=== PATIENT | female | born 2000 ===

== ENCOUNTER 2025-09-05 03:24 | Emergency (ER) | payer MEDICAID, OTHER, SELFPAY ==
[2025-09-05 03:31] VITALS: BP 107/58; PULSE 74; RESP 20; TEMP 36.9; O2SAT 99; BMI 21.4
[2025-09-05 04:24] LABS: Resp Syncy Virus RNA Qual PCR NEGATIVE (Negative); SARS COV2 PCR INHOUSE NEGATIVE (Negative)
--- NOTE | 2025-09-05 05:01 | ED_ITS ---
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 Shannon Alaniz HPI Narrative: Social Service Director services provided throughout visit (Finnish). The patient is a female presenting with 2 days of severe, persistent headache that ?hasn?t stopped.? She reports generalized body aches that began overnight (last night/early this morning) and diffuse back pain (?in my spine?). She feels feverish but has not taken her temperature; she notes a possible mild fever yesterday. Sick contact history: her daughter was feeling a little sick but is now okay. A rapid influenza test performed in the ED is positive for Influenza A. She denies nausea, vomiting, or diarrhea, though she notes the onset of mild stomachache about one hour prior to evaluation. She occasionally experiences e pisodes of shortness of breath suggestive of mild reactive airway symptoms but does not use any maintenance inhaler. No prior medical problems and no medication allergies are reported. She has not received this year?s influenza vaccine. Last menstrual period was on the 11 or 12th of this month. Related Data Previous Rx's ?Medication ?Instructions ?Recorded albuterol sulfate 90 mcg/actuation 2 inh inhalation Q4 H PRN shortness 09/05/25 breath activated powder inhaler of breath #1 ea ibuprofen 600 mg tablet 600 mg PO Q8H PRN fever or p ain 09/05/25 #30 tabs ondansetron 4 mg disintegrating 4 mg PO Q8H PRN nausea and 09/05/25 tablet vomiting #10 tabs Allergies Allergy/AdvReac Type Severity Reaction Status Date / Time No Known Allergies Allergy Verified 09/05/25 03:33 Review of Systems Review of Systems: as per HPI, full review of systems performed and negative but for the above mentioned pertinent positives and negatives. [facility] Social History Social History Advance Directives: No Advance Directives Information Provided: Yes Physical Exam Exam: Exam: GENERAL: Ill-Appearing, appears uncomfortable. SKIN: Normal skin color for ethnicity, warm, dry, no rashes noted. HEENT:? Normocephalic, atraumatic, no stridor, dry mucous membranes, dentition intact, EOMI. NECK: Soft, supple, full ROM, midline structures nontender, no step-offs, no deformities, no lymphadenopathy. CHEST: Heart regular rhythm, no murmurs, symmetric chest rise and fall. PULMONARY: Clear to auscultation bilaterally, diminished at the bases, no labored breathing, no wheezes/rhales/rhonchi. ABDOMINAL: Soft, nondistended, nontender, positive bowel sounds in all quadrants. : Deferred. MUSCULOSKELETAL: Normal tone, full range of motion, no deformities, no peripheral edema. NEURO: Alert and oriented x3, CN II through XII intact, equal strength and sensation bilateral upper and lower extremities, no focal neurologic deficits.? PSYCHIATRIC: Flat affect, fluid speech, good eye contact and appropriate demeanor. Vital Signs: Vital Signs: Last Vital Signs Temp 98.4 F 09/05/25 05:21 Pulse 87 09/05/25 05:21 Resp 20 09/05/25 05:21 BP 107/58 L 09/05/25 05:21 Pulse Ox 99 09/05/25 05:21 O2 Del Method Room Air 09/05/25 05:21 BMI result Body Mass Index 21.4 Medications Administered Discontinued Medications Generic Name Dose Route Start Last Admin Trade Name Freq PRN Reason Stop Dose Admin Albuterol Sulfate 2 puff 09/05/25 04:59 09/05/25 05:13 Albuterol Sulfate 90 Mcg 8 Gm Inhaler INHALE 09/05/25 05:00 2 puff ONCE ONE Administration Ibuprofen 600 mg 09/05/25 04:59 09/05/25 05:18 Ibuprofen 600 Mg Tablet PO 09/05/25 05:00 600 mg ONCE ONE Administration Medical Decision Making Medical Decision Making [facility] Narrative: Patient presents today with flu-like symptoms. Differential diagnosis includes influenza, coronavirus, pneumonia, upper respiratory infection, among others. Most importantly, this patient is not in any acute respiratory distress. They have normal oxygen levels at room air. Problem #1: Influenza A infection Assessment: Confirmed by rapid antigen test; symptom onset <48 h, patient within treatment window. Plan: * Initiate oseltamivir (Tamiflu) prescription; side-effects (nausea, vomiting, diarrhea) reviewed with patient. * Symptomatic treatment: antipyretics/analgesics (acetaminophen or ibuprofen) as needed for fever and pain. * Return precautions: return if symptoms not improving within 1 week, development of green/brown phlegm, or worsening shortness of breath. Problem #2: Headache / Myalgias associated with influenza Assessment: Severe, persistent; related to viral illness. Plan: * Administer analgesic/antipyretic medication in ED for headache, body aches, and fever. * Continue acetaminophen or ibuprofen at home as needed. * Educate that symptoms may persist for several days despite antiviral therapy. Problem #3: Episodic shortness of breath / possible bronchospasm Assessment: Patient experiences intermittent shortness of breath without established asthma diagnosis; likely viral-induced bronchospasm. Plan: * Inhaler provided for use if experiencing shortness of breath or coughing fits. * Return if shortness of breath worsens or inhaler no longer provides relief. Differential Diagnosis Differential Diagnoses: The differential diagnosis associated with the presentation includes (as above) Admission/Observation Consideration of admission/observation: Escalation of care including a dmission/observation considered Lab Data MDM Lab Attestation statement: I reviewed the patient's lab results. Labs: Lab Results 09/05/25 Range/Units 03:43 Influenza Type A (PCR) POSITIVE A (Negative) Influenza Type B (PCR) NEGATIVE (Negative) RSV RNA Qual (PCR) NEGATIVE (Negative) SARS-CoV-2 RNA (RT-PCR) NEGATIVE (Negative) External Record Review External record reviewed: Inpatient record Prescription Management I considered prescription management with: Antiviral Discharge Plan Discharge Clinical Impression: Influenza A Patient Disposition: Home, Self-Care Instructions: Influenza (ED) Additional Instructions: Keep your mask on if you have to go into public for any reason while you are ill. Use Tylenol and Motrin around the clock for fever and body aches. Use Zofran (ondansetron) as needed for nausea. Return to the emergency department with any new or worsening symptoms including: Worsening shortness of breath, continued fevers despite medications, inability to tolerate food or drink. Call 911 with any medical emergency. Mantenga puesta la mascarilla si necesita salir a la jimenes por cualquier motivo mientras est? enfermo. [place] Tylenol y Motrin cada pocas horas para la fiebre y los elle corporales. Use Zofran (ondansetr?n) seg?n sea necesario para las n?useas. Regrese a la von de emergencias si presenta s?ntomas nuevos o que empeoran, incluyendo: dificultad para respirar que empeora, fiebre persistente a pesar de los medicamentos, o incapacidad para tolerar alimentos o l?quidos. Llame al 911 en félix de cualquier emergencia m?dica. Prescriptions: New ibuprofen 600 mg tablet 600 mg PO Q8H PRN (Reason: fever or pain) Qty: 30 0RF ondansetron 4 mg tablet,disintegrating 4 mg PO Q8H PRN (Reason: nausea and vomiting) Qty: 10 0RF albuterol sulfate 90 mcg/actuation aerosol powdr breath activated 2 inh inhalation Q4H PRN (Reason: shortness of breath) Qty: 1 0RF Interventions: ED Discharge Assessment Last Done: 09/05/25 05:21 Discharge Date/Time: 09/05/25 05:22 Print Language: Finnish
[2025-09-05] MEDS: Albuterol Sulfate 90 MCG 8 GM INHALER 2 PUFF INHALE (05:13)
[2025-09-05 05:17] VITALS: PULSE 87; RESP 20; O2SAT 97
[2025-09-05 05:21] VITALS: BP 107/58; PULSE 87; RESP 20; TEMP 36.9; O2SAT 99
== END 2025-09-05 05:22 | disposition home or self-care (01) ==
PROVIDERS: Emergency Provider Emergency Medicine
DX: J10.1 Influenza due to other identified influenza virus with other respiratory manifestations (principal); R06.02 Shortness of breath; R05.9 Cough, unspecified; R51.9 Headache, unspecified; Z03.818 Encounter for observation for suspected exposure to other biological agents ruled out
CPT/HCPCS: 87637; 94640; 94664; 99283; 99284